=== PATIENT | male | born 1955 | race African-American/Black ===

== ENCOUNTER 2017-07-07 11:49 | Day surgery (SDC) | payer OTHER ==
[2017-07-07] MEDS ORDERED: PROPOFOL 20 ML (12:58)
[2017-07-07] MEDS ORDERED: LIDOCAINE 2% (SDV) 5 ML INJ (12:58)
[2017-07-07] MEDS ORDERED: MIDAZOLAM 1 MG/ML 2 ML INJ (13:13)
== END 2017-07-07 14:44 | disposition home or self-care (01) ==
LOC: GIL 11:49
DX: K21.9 Gastro-esophageal reflux disease without esophagitis (principal); K29.70 Gastritis, unspecified, without bleeding; I10 Essential (primary) hypertension
CPT/HCPCS: 43239; 87081